=== PATIENT | male | born 1965 ===

== ENCOUNTER 2017-08-29 11:50 | Emergency (ER) | payer OTHER ==
[2017-08-29 12:00] VITALS: BP 121/77; PULSE 105
[2017-08-29 12:56] VITALS: RESP 18; TEMP 98; O2SAT 99
--- NOTE | 2017-08-29 16:15 | RAD ---
PROCEDURE: Right Knee Radiographs. HISTORY: Pain COMPARISON: None. FINDINGS: BONES: Bone alignment and mineralization are normal. There is no acute displaced fracture or bone destruction. JOINTS: There is mild tricompartmental degenerative osteoarthrosis, worse in the medial compartment with reduced joint spaces, marginal osteophytes and tibial spiking. JOINT EFFUSION: There is a small suprapatellar joint effusion. OTHER FINDINGS: None. IMPRESSION: No acute fracture or dislocation. Mild tricompartmental degenerative osteoarthrosis, worse in the medial compartment. Small suprapatellar joint effusion.
--- NOTE | 2017-08-29 17:03 | ED PDOC ---
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 Reports of pain and swelling. Patient states he used knee brace and noticed it is tight and caused cuts on right knee. Denies fever, numbness or tingling. Tetanus shot UTD and his last one was one month ago. PMD: No Family Provider Past Medical History Reviewed: Historical Data, Nursing Documentation, Vital Signs Vital Signs: Last Vital Signs Temp 98.0 F 08/29/17 12:53 Pulse 105 H 08/29/17 12:53 Resp 18 08/29/17 12:53 BP 121/77 08/29/17 12:53 Pulse Ox 99 08/29/17 12:53 - Medical History PMH: No Chronic Diseases - Surgical History Surgical History: No Surg Hx - Family History Family History: States: No Known Family Hx - Home Medications Home Medications: Ambulatory Orders Medication Instructions Recorded Meloxicam [Mobic] 7.5 mg PO DAILY PRN #10 tab 08/29/17 - Allergies Allergies/Adverse Reactions: Allergies Allergy/AdvReac Type Severity Reaction Status Date / Time No Known Allergies Allergy Verified 08/29/17 12:53 Review of Systems ROS Statement: Except As Marked, All Systems Reviewed And Found Negative Constitutional: Negative for: Fever Musculoskeletal: Positive for: Leg Pain (right knee pain). Negative for: Other (tingling) Neurological: Negative for: Numbness Physical Exam - Reviewed Nursing Documentation Reviewed: Yes Vital Signs Reviewed: Yes - Physical Exam Appears: Positive for: Well, Non-toxic, No Acute Distress Head Exam: Positive for: ATRAUMATIC, NORMAL INSPECTION, NORMOCEPHALIC Skin: Positive for: Normal Color, Warm, Dry Pulses-Dorsalis Pedis (R): 2+ Extremity: Positive for: Normal ROM (right knee, minimal warmth), Swelling ( right knee mild), Other (superficial abrasion, positive crepitus). Negative for : Tenderness (erythema) Neurologic/Psych: Positive for: Alert, Oriented (x3). Negative for: Motor/ Sensory Deficits - ECG O2 Sat by Pulse Oximetry: 99 (RA) Pulse Ox Interpretation: Normal Medical Decision Making Medical Decision Making: Time: 1504 Initial Plan: --Knee 3 Views RT --Toradol 30mg --Reevaluation Time: 161 PROCEDURE: Right Knee Radiographs. HISTORY: Pain COMPARISON: None. FINDINGS: BONES: Bone alignment and mineralization are normal. There is no acute displaced fracture or bone destruction. JOINTS: There is mild tricompartmental degenerative osteoarthrosis, worse in the medial compartment with reduced joint spaces, marginal osteophytes and tibial spiking. JOINT EFFUSION: There is a small suprapatellar joint effusion. OTHER FINDINGS: None. IMPRESSION: No acute fracture or dislocation. Mild tricompartmental degenerative osteoarthrosis, worse in the medial compartment. Small suprapatellar joint effusion. Clinical Impression: Knee Contusion Upon provider evaluation patient is medically stable, and requires no further treatment in the ED at this time. Patient will be discharged with Mobic 7.5mg for pain. Counseling was provided and all questions were answered regarding diagnosis and need for follow up with PMD. There is agreement to discharge plan. Return if symptoms persist or worsen. Scribe Attestation: Documented by Heath Marroquin, acting as a scribe for Min Mackey PA-C Provider Scribe Attestation: All medical record entries made by the Scribe were at my direction and personally dictated by me. I have reviewed the chart and agree that the record accurately reflects my personal performance of the history, physical exam, medical decision making, and the department course for this patient. I have also personally directed, reviewed, and agree with the discharge instructions and disposition. Disposition - Clinical Impression Clinical Impression: Knee contusion - Patient ED Disposition Is Patient to be Admitted: No - Disposition Referrals: [facility] [Outside] [facility] [Outside] Disposition: Routine/Home Condition: STABLE Additional Instructions: Follow up with [facility] or Dr. Mars for further evaluation Return to ED immediately if symptoms worsen Prescriptions: Meloxicam [Mobic] 7.5 mg PO DAILY PRN #10 tab PRN Reason: Pain, Mild (1-3) Instructions: Contusion (DC) Forms: [employer] (Albanian) Print Language: TURKISH
== END 2017-08-29 18:56 | disposition home or self-care (01) ==
LOC: H.ER 11:50
DX: S80.01XA Contusion of right knee, initial encounter (principal); W22.8XXA Striking against or struck by other objects, initial encounter; Y92.89 Other specified places as the place of occurrence of the external cause; M17.11 Unilateral primary osteoarthritis, right knee
CPT/HCPCS: 73562; 96372; 99283; J1885

== ENCOUNTER 2017-08-30 16:47 | Emergency (ER) | payer OTHER ==
[2017-08-30 16:56] VITALS: O2SAT 99
--- NOTE | 2017-08-30 17:19 | ED PDOC ---
Lower Extremity Pain/Injury Time Seen by Provider: 08/30/17 16:58 Chief Complaint (Nursing): Lower Extremity Problem/Injury Chief Complaint (Provider): Right knee pain History Per: Patient History/Exam Limitations: no limitations Onset/Duration Of Symptoms: Days Additional Complaint(s): 52 year old male presents to the emergency department with a complaint of a right knee pain status post injury to the knee on cement about 2-3 weeks ago. Associated with swelling. Patient was seen in this facility yesterday, completed an x-ray of the knee, and prescribed medication with healing instructions. States pain still continues and not exactly sure who to follow up with. Denies numbness, fever, or any other joint pain. Past Medical History Reviewed: Historical Data, Nursing Documentation, Vital Signs Vital Signs: Last Vital Signs Temp 98.7 F 08/30/17 16:54 Pulse 104 H 08/30/17 16:54 Resp 16 08/30/17 16:54 BP 123/71 08/30/17 16:54 Pulse Ox 99 08/30/17 16:54 - Medical History PMH: No Chronic Diseases - Surgical History Surgical History: No Surg Hx - Family History Family History: States: Unknown Family Hx - Social History Current smoker - smoking cessation education provided: No Alcohol: None Drugs: Denies - Home Medications Home Medications: Ambulatory Orders Medication Instructions Recorded Meloxicam [Mobic] 7.5 mg PO DAILY PRN #10 tab 08/29/17 - Allergies Allergies/Adverse Reactions: Allergies Allergy/AdvReac Type Severity Reaction Status Date / Time No Known Allergies Allergy Verified 08/30/17 16:54 Review of Systems ROS Statement: Except As Marked, All Systems Reviewed And Found Negative (as per HPI, otherwise negative) Constitutional: Negative for: Fever, Other (other joint pain) Musculoskeletal: Positive for: Other (Right knee pain with swelling) Neurological: Negative for: Numbness Physical Exam - Reviewed Nursing Documentation Reviewed: Yes Vital Signs Reviewed: Yes - Physical Exam Comments: GENERAL APPEARANCE: Patient is awake, alert, oriented x 3, in no acute distress. SKIN: Warm, dry; (-) cyanosis. LOWER EXTRM: (+) Moderate effusion of the right knee. Able to flex and extend knee, (-) ecchymosis, (-) deformity, (-) distal neurovascular deficit. NEURO AND PSYCH: Mental status as above. - ECG O2 Sat by Pulse Oximetry: 99 (RA) Pulse Ox Interpretation: Normal Medical Decision Making Medical Decision Making: Time: 1700 Initial impression: Right knee swelling s/p injury Initial plan: --Evaluation Time: 1830 X-ray from yesterdays ER visit was reviewed which showed suprapatellar effusion. XR results discussed with patient as well diagnosis. Advised he must rest, ice, and elevate the right knee. Also advised it will take several days for any improvement. Vimal wrap and knee immoblizer applied and instructions on crutch walking provided. Patient is medical clear for discharge and given Rx for. Advised to continue prescribed medication from yesterdays visit. Advised to follow up with the clinic or Dr. Rafa Mars MD in 1-2 days without fail. Return to the emergency room at any time for any new or worsening symptoms. Patient states he fully agrees with and understands discharge instructions. States that he agrees with the plan and disposition. Verbalized and repeated discharge instructions and plan. I have given the patient opportunity to ask any additional questions. Clinical Impression: Knee effusion, right. Scribe Attestation: Documented by Lacey Holloway, acting as a scribe for Gayla Chavez PA-C. Provider Scribe Attestation: All medical record entries made by the Scribe were at my direction and personally dictated by me. I have reviewed the chart and agree that the record accurately reflects my personal performance of the history, physical exam, medical decision making, and the department course for this patient. I have also personally directed, reviewed, and agree with the discharge instructions and disposition. Disposition - Clinical Impression Clinical Impression: Knee effusion, right - Patient ED Disposition Is Patient to be Admitted: No Counseled Patient/Family Regarding: Diagnosis, Need For Followup, Rx Given - Disposition Referrals: Rafa Mars MD [Staff Provider] - Disposition: Routine/Home Disposition Time: 18:30 Condition: STABLE Additional Instructions: Thank you for letting us take care of you today. You were treated for right knee effusion. The emergency medical care you received today was directed at your acute symptoms. Must ice, elevate, wear vimal wrap. It may take several days for your symptoms to resolve. Return to the Emergency Department if your symptoms worsen, do not improve, or if you have any other problems. Please contact your doctor in 2 days for re-evaluation and follow up / or call one of the physicians/clinics you have been referred to that are listed on the Patient Visit Information form that is included in your discharge packet. Bring any paperwork you were given at discharge with you along with any medications you are taking to your follow up visit. Our treatment cannot replace ongoing medical care by a primary care provider (PCP) outside of the emergency department. Thank you for allowing the [facility] team to be part of your care today. Instructions: Knee Immobilizer (DC), Contusion (DC) Forms: [employer] (Scottish) Print Language: JAPANESE - PA / SUPERVISOR PRODUCTION DEPARTMENT / Resident Statement MD/DO has reviewed & agrees with the documentation as recorded.
[2017-08-30 18:03] VITALS: BP 118/78; PULSE 78; RESP 18; TEMP 98
== END 2017-08-30 18:17 | disposition home or self-care (01) ==
LOC: H.ER 16:47
DX: M25.461 Effusion, right knee (principal)